=== PATIENT | male | born 1985 | race African-American/Black ===

== ENCOUNTER 2016-10-31 18:47 | Emergency (ER) | payer MEDICAID ==
[~2016-10-31] VITALS: Ht 185.4 cm; Wt 121.7 kg
[2016-10-31 18:55] VITALS: BP 128/73
--- NOTE | 2016-10-31 19:15 | NUR ---
Patient ambulated to bed 08.
--- NOTE | 2016-10-31 19:15 | NUR ---
Yusra kennedy in [facility] - 10/31/16 at 1932 by TWYLA Patient ambulated to bed 07.
--- NOTE | 2016-10-31 19:19 | NUR ---
31 Y/O M W/C/O COUGH X 1 WK, AND LOWER BACK PAIN R/T INJURY AT WORK X 2 WKS. O2 SAT 99%, NO S/S OF RESP DISTRESS NOTED AT THE MOMENT. PA MADE AWARE.
[2016-10-31 19:50] VITALS: BP 122/64
--- NOTE | 2016-10-31 19:50 | NUR ---
Patient discharged with v/s stable. Written and verbal after care instructions given and explained. Patient alert, oriented and verbalized understanding of instructions. Ambulatory with steady gait. All questions addressed prior to discharge. ID band removed. Patient advised to follow up with PMD OR RETURN TO ER IF CONDITION WORSENS. Rx of PREDNISONE, SUDAFED, AZITHROMYCIN, AND MOTRIN given. Patient educated on indication of medication including possible reaction and side effects. Opportunity to ask questions provided and answered.
== END 2016-10-31 19:50 | disposition home or self-care (01) ==
LOC: MED 18:47
DX: M54.5 Low back pain (principal); J06.9 Acute upper respiratory infection, unspecified
CPT/HCPCS: 99283